=== PATIENT | male | born 1995 | race Caucasian/White ===

== ENCOUNTER 2020-09-22 21:38 | Emergency (ER) | payer SELFPAY ==
[2020-09-22 21:39] VITALS: BP 131/74; PULSE 110; RESP 18; TEMP 36.6; O2SAT 95; BMI 36.4
--- NOTE | 2020-09-22 21:54 | W.ED.TRAUMA ---
HPI - Trauma General: Chief Complaint: Trauma Stated Complaint: rt side rib pain Time Seen by Provider: 09/22/20 21:47 Source: patient Mode of arrival: EMS Limitations: no limitations History of Present Illness: HPI narrative: Patient is a 25-year-old male who presents to ED today along with his mother for complaints of right rib pain. Patient tells me he was playing football when he was tackled by another football player. He states he felt like he got the breath knocked out of him . He is not complaining of shortness of breath currently. He states pain has improved since his initial incident. No other injuries apart from right-sided rib pain. MD complaint: pain Onset (ago): minute(s) Loss of Consciousness: no Location: chest Context: other (football injury) Associated symptoms: Reports no associated symptoms and chest pain; Denies abdominal pain, back pain, headache(s) or syncope Review of Systems Eyes: Denies: change in vision ENMT: Denies: throat pain or odynophagia Card: Reports: chest pain; Denies: palpitations, irregular heart rhythm, edema, swelling of feet/ankles, lightheadedness, syncope, pre-syncope, dyspnea on exertion or orthopnea Resp: Reports: pain on inspiration; Denies: dyspnea, productive cough, non-productive cough, wheezing, stridor, hemoptysis or chest congestion GI: Denies: abdominal pain : Denies: flank pain Musc: Denies: neck pain, back pain, extremity pain or joint pain Neuro: Denies: headache(s) Physical Exam Const: COMMON NORMALS: no acute distress, average body habitus, patient oriented x3, no limitations, healthy appearing, alert and well nourished GENERAL APPEARANCE: cooperative ORIENTATION/CONSCIOUSNESS: Yes awake, Yes oriented to person, Yes oriented to place and Yes oriented to time HENMT: COMMON NORMALS: normocephalic and atraumatic HEAD & SCALP: normocephalic and atraumatic FACE & SINUS: normal facial exam Neck/C-Spine: COMMON NORMALS: full ROM CERVICAL SPINE: Yes cervical ROM normal, No pain with cervical ROM, No Cervical spine tenderness and No Paracervical muscle tenderness Chest: COMMONS NORMALS: normal inspection of the chest OTHER: mild-mod pain of R lower anterior ribs; no crepitus Resp: COMMON NORMALS: normal respiratory effort and clear to auscultation bilaterally AUSCULTATION: clear to auscultation bilaterally Cardio: COMMON NORMALS: regular rate and regular rhythm RATE: regular rate RHYTHM: regular rhythm GI: COMMON NORMALS: Normal to inspection, nondistended, normoactive bowel sounds present, Soft to palpation, non-tender, No hepatosplenomegaly present and no masses PALPATION: Yes Soft to palpation and Yes No hepatosplenomegaly present Extremity: COMMON NORMALS: normal to inspection and full ROM NARRATIVE EXTREMITY EXAM: some ecchymosis noted to R upper arm GENERAL: Yes normal exam except as noted Neuro: TAMARA COMA SCALE: document [facility] findings Tamara coma scale eye opening: Spontaneous Tamara coma scale verbal response: Orientated Wendel coma scale motor response: Obey commands Wendel coma scale total score: 15 COMMON NORMALS: patient oriented x3, CN's II-XII intact bilaterally, moves all extremities, no focal motor deficits, no sensory deficits noted and gait normal SENSORIUM/ORIENTATION: Yes alert, Yes oriented to person, Yes oriented to place and Yes oriented to time Course Vital Signs: Vital signs: Vital Signs Temperature 97.8 F 09/22/20 21:39 Pulse Rate 107 H 09/22/20 22:05 Respiratory Rate 16 09/22/20 22:05 Blood Pressure 120/67 09/22/20 22:05 Pulse Oximetry 95 09/22/20 22:05 MDM - Trauma Imaging Data^: XR R ribs/CXR: Radiologist's impression: [address] [id number] ReportSigned Patient: Stefano Stroud AUnit #: [id number]: [id number]#:[id number]/Sex: 25 / MADM Date: 09/22/20Loc: ERRoom/Bed:Attending Dr: Ordering Provider/Ordering MD: Kathrine Crooks Date of Service: 09/22/20 Procedure(s): XR ribs RT mn 3V w CXR1V [id number] Accession Number(s): [id number] Report Number: [id number] PROCEDURE INFORMATION: Exam: XR Right Ribs with PA Chest Exam date and time: 09/22/2020 9:54 PM Age: 25 years old Clinical indication: Injury or trauma; Rib area; Blunt trauma (contusions or hematomas); Patient HX: C/O R rib pain after being tackled playing football TECHNIQUE: Imaging protocol: XR Right ribs with PA chest. Views: 3 views Total images: 5 COMPARISON: No relevant prior studies available. FINDINGS: Lungs: Unremarkable. No consolidation. Pleural spaces: Unremarkable. No pleural effusion. No pneumothorax. Heart/Mediastinum: Unremarkable. No cardiomegaly. Bones/joints: No visible rib fracture. Other findings: Heavy body habitus. XR/XR ribs RT mn 3V w CXR1V [id number] IMPRESSION: Nonacute. Dictated By:Elisabet Deleon By:Elisabet Deleon Date/Time:09/22/203DD/ 20 Discharge Plan Discharge Patient Disposition: Home Clinical Impression: Contusion of rib on right side Qualifiers: Encounter type: initial encounter Qualified Code(s): S20.211A - Contusion of right front wall of thorax, initial encounter Condition: Stable Prescriptions: No Action No Known Home Medications RF: 0 Discharge Orders: Discharge ED (Routine); Ordered 09/22/20 Ordered By: Kathrine Crooks Coding Level of Care Code ED Contact Worker Lithography for g Fwd Exam Comprehensive
--- NOTE | 2020-09-22 22:01 | PC.NURSE ---
xray in room
[2020-09-22 22:05] VITALS: BP 120/67; PULSE 107; RESP 16; O2SAT 95
[2020-09-22] MEDS: ketorolac 60 mg/2 mL INJ IM (22:40)
[2020-09-22 22:48] VITALS: BP 128/81; PULSE 100; RESP 15; O2SAT 15
== END 2020-09-22 22:49 | disposition home or self-care (01) ==
PROVIDERS: Emergency Provider Physician Assistant
DX: S20.211A Contusion of right front wall of thorax, initial encounter (principal); W03.XXXA Other fall on same level due to collision with another person, initial encounter; Y93.61 Activity, american tackle football
CPT/HCPCS: 71101; 96372; 99281; J1885